=== PATIENT | female | born 1995 | race Caucasian/White ===

== ENCOUNTER 2024-04-07 12:28 | Emergency (ER) | payer OTHER ==
[2024-04-07 13:22] VITALS: BP 109/70; PULSE 82; RESP 18; TEMP 97.6; BMI 23.3
== END 2024-04-07 13:31 | disposition home or self-care (01) ==
LOC: JERFT 12:28 → JER 12:28 → JERFT 13:31
PROC: 0CQ0XZZ Repair Upper Lip, External Approach (ICD-10-PCS; principal; 2024-04-07)
DX: S01.511A Laceration without foreign body of lip, initial encounter (principal); W22.8XXA Striking against or struck by other objects, initial encounter
CPT/HCPCS: 99283-25